=== PATIENT | female | born 1975 | race Caucasian/White ===

== ENCOUNTER 2024-06-09 17:59 | Emergency (ER) | payer MEDICAID ==
[~2024-06-09] VITALS: Ht 162.6 cm; Wt 68.5 kg
[2024-06-09 18:17] VITALS: BP 137/80; PULSE 90; RESP 16; TEMP 98.6; O2SAT 99
[2024-06-09] MEDS ORDERED: NIRM1TAB9 PO (18:49)
[2024-06-09] MEDS ORDERED: ACET500T99 PO (18:49)
[2024-06-09] MEDS ORDERED: IBUP-1842 PO (18:49)
[2024-06-09] MEDS: IBUPROFEN 600 MG TAB PO ONE (19:04)
[2024-06-09] MEDS: ACETAMINOPHEN EXTRA STRENGTH 500 MG TAB PO ONE (19:05)
[2024-06-09 19:27] VITALS: BP 135/80; PULSE 89; RESP 16; TEMP 98.6; O2SAT 98
--- NOTE | 2024-06-09 19:28 | NUR ---
Patient discharged with v/s stable. Written and verbal after care instructions given and explained. Patient alert, oriented and verbalized understanding of instructions. Ambulatory with steady gait. All questions addressed prior to discharge. ID band removed. Patient advised to follow up with PMD. Rx of tylenol, motrin, and paxlovid given. Patient educated on indication of medication including possible reaction and side effects. Opportunity to ask questions provided and answered.
[2024-06-09 19:33] LABS: FLU A ANTIGEN NEGATIVE (NEGATIVE); FLU B ANTIGEN NEGATIVE (NEGATIVE)
== END 2024-06-09 19:27 | disposition home or self-care (01) ==
LOC: MED 17:59
DX: U07.1 COVID-19 (principal); J06.9 Acute upper respiratory infection, unspecified; Z85.850 Personal history of malignant neoplasm of thyroid; Z79.899 Other long term (current) drug therapy
CPT/HCPCS: 99283